=== PATIENT | male | born 1945 ===

== ENCOUNTER 2024-07-10 18:22 | Outpatient (REF) | payer MEDICARE, OTHER, SELFPAY ==
[2024-07-10 17:37] LABS: Abs Immature Grans 0.01 10^3/uL (0.0-0.06); Absolute Basophil Count 0.02 10^3/uL (0.0-0.2); Absolute Eosinophil Count 0.04 10^3/uL (0.0-0.7); Absolute Lymphocyte Count 1.29 10^3/uL (1.2-3.4); Absolute Monocyte Count 0.34 10^3/uL (0.1-0.8); Basophils % 0.4 %; Eosinophils % 0.8 %; HCT 40.8 % (40.0-50.0); HGB 13.6 g/dL (13.5-17.5); Immature Grans % 0.2 %; Lymphocytes % 25.8 %; MCH 30.6 pg (27.0-33.0); MCHC 33.3 % (32.0-36.0); MCV 92 fL (80-95); MPV 10.9 fL (8.0-11.0); Monocytes % 6.8 %; Platelet Count 224 10^3/uL (130-400); RBC 4.45 10^6/uL (4.36-5.78); RDW 11.4 % (11.8-14.1); RDW-SD 38.7 fL
[2024-07-10 17:47] LABS: ALT 23 U/L (16-63); AST 18 U/L (15-37); Albumin 2.9 g/dL (3.4-5.0); Alkaline Phosphatase 68 U/L (46-116); Anion Gap 4.6 mmol/L (3-11); BUN 13 mg/dL (7-18); Bilirubin, Total 0.46 mg/dL (0.2-1.0); CO2 30.4 mmol/L (21.0-32.0); Calcium 8.9 mg/dL (8.5-10.1); Chloride 103 mmol/L (98-107); Estimated GFR 76.08 (mL/min/1.73m2); Glucose 86 mg/dL (74-106); Potassium 4.4 mmol/L (3.5-5.1); Sodium 138 mmol/L (136-145); Total Protein 5.9 g/dL (6.4-8.2)
== END 2024-07-10 18:23 | disposition home or self-care (01) ==
LOC: NCHCN 18:22
PROVIDERS: Visit Provider Internal Medicine
DX: G30.9 Alzheimer's disease, unspecified (principal); C32.9 Malignant neoplasm of larynx, unspecified
CPT/HCPCS: 80053; 85025